=== PATIENT | female | born 1995 | race Caucasian/White ===

== ENCOUNTER 2017-03-17 22:05 | Inpatient (IN) | payer OTHER ==
[~2017-03-17] VITALS: Ht 162.6 cm; Wt 82.0 kg
[2017-03-17] MEDS ORDERED: ONDANSETRON 2MG/ML, 2ML ONE (22:17)
[2017-03-17] MEDS ORDERED: BIRTH CONTROL PO (22:28)
[2017-03-17] MEDS ORDERED: PROMETHAZINE 25 MG/ML, 1ML ONE (22:50)
[2017-03-17] MEDS ORDERED: PROMETHAZINE 25 MG/ML, 1ML IM ONE (23:00)
[2017-03-17] MEDS ORDERED: MECLIZINE CHEWABLE 25 MG TAB PO ONE (23:00)
[2017-03-17] MEDS ORDERED: ONDANSETRON 2MG/ML, 2ML IVPush ONE (23:00)
[2017-03-17] MEDS ORDERED: MECLIZINE CHEWABLE 25 MG TAB ONE (23:27)
[2017-03-17 23:40] LABS: BASOPHILS # (AUTO) 0.06 x10^3/uL (0-0.1); BASOPHILS % (AUTO) 1 % (0-1); EOSINOPHILS # (AUTO) 0.08 x10^3/uL (0-0.4); EOSINOPHILS % (AUTO) 1 % (1-7); LYMPHOCYTES # (AUTO) 2.43 x10^3/uL (1-3.4); LYMPHOCYTES % (AUTO) 21 % (22-44); MD NO; MEAN CORPUSCULAR HEMOGLOBIN 30.5 pg (27.0-34.8); MEAN CORPUSCULAR VOLUME 89.8 fL (80-100); MEAN PLATELET VOLUME 7.6 fL (7.4-10.4); MONOCYTES # (AUTO) 0.68 x10^3/uL (0.2-0.8); MONOCYTES % (AUTO) 6 % (2-9); NEUTROPHILS % (AUTO) 72 % (42-75); PLATELET COUNT 314 x10^3/uL (130-400); RED BLOOD COUNT 4.71 x10^6/uL (3.82-5.3); RED CELL DISTRIBUTION WIDTH 13.5 % (9.6-15.2)
[2017-03-17 23:48] LABS: INTERNATIONAL NORMALIZED RATIO 0.98 (0.93-1.1); PROTHROMBIN TIME 10.2 Seconds (9.6-11.5)
[2017-03-18] MEDS ORDERED: DEXAMETHASONE 4 MG/ML, 5ML ONE (00:11)
[2017-03-18] MEDS ORDERED: DEXAMETHASONE 4 MG/ML, 1ML IVPush ONE (00:30)
[2017-03-18] MEDS ORDERED: LORazepam 2 MG/ML, 1ML IVPush STA (01:19)
[2017-03-18] MEDS ORDERED: LORazepam 2 MG/ML, 1ML ONE (01:52)
[2017-03-18 02:20] VITALS: BP 106/68
[2017-03-18 03:00] VITALS: BP 106/68
[2017-03-18] MEDS ORDERED: ACETAMINOPHEN 325 MG TABLET PO PRN (06:00)
[2017-03-18] MEDS ORDERED: ONDANSETRON 2MG/ML, 2ML IVPush PRN (06:00)
[2017-03-18] MEDS: D5%-0.9% NACL 1,000 ML IV SCH ×3 (06:03→19:35)
[2017-03-18 08:17] VITALS: BP 111/71
[2017-03-18] MEDS: MECLIZINE CHEWABLE 25 MG TAB PO PRN ×2 (09:52→17:49)
[2017-03-18 09:56] VITALS: BP 98/59
[2017-03-18 14:07] VITALS: BP 104/48
[2017-03-18 19:28] VITALS: BP 111/52
[2017-03-19] MEDS: D5%-0.9% NACL 1,000 ML IV SCH ×3 (02:03→15:15)
[2017-03-19 03:48] VITALS: BP 104/55
[2017-03-19 07:44] VITALS: BP 106/68
[2017-03-19 12:51] VITALS: BP 117/74
[2017-03-19] MEDS ORDERED: MECL-85 PO (15:27)
== END 2017-03-19 16:52 | disposition home or self-care (01) | DRG 123 ==
LOC: ED 23:54 → EDIP 03-18 01:31 → 3NE 03-18 02:07 → DCLOUNGE 03-19 16:40
PROVIDERS: ADMIT Hospitalist; ATTEND Hospitalist
DX: H55.00 Unspecified nystagmus (principal); E87.6 Hypokalemia; R11.2 Nausea with vomiting, unspecified; R51 Headache; H81.10 Benign paroxysmal vertigo, unspecified ear
CPT/HCPCS: 36415; 70450; 70551; 80047; 82962; 84703; 85025; 85610; 85730; 93005; J1100; J2405; J2550; J7042